=== PATIENT | female | born 1980 | race Caucasian/White ===

== ENCOUNTER 2022-03-27 13:13 | Emergency (ER) | payer OTHER, SELFPAY ==
[2022-03-27 13:17] VITALS: BP 140/95; PULSE 118; RESP 15; TEMP 36.3; O2SAT 100; BMI 32.5
[2022-03-27 13:52] LABS: Add Manual Diff / Slide Review NO; Basophils Absolute Auto 0 /uL (0-100); Basophils Percent Auto 0.6 % (0-2); Eosinophils Absolute Auto 100 /uL (0-450); Eosinophils Percent Auto 1.2 % (2-4); Hematocrit 30.9 % (36-46); Hemoglobin 10.3 g/dL (12.0-16.0); Lymphocytes Absolute Auto 1200 /uL (1100-4500); Mean Corpuscular HGB Conc 33.3 % (30-36); Mean Corpuscular Hemoglobin 27.2 PG (26-34); Mean Corpuscular Volume 81.6 fL (80-100); Monocytes Absolute Auto 500 /uL (0-900); Neutrophils Absolute Auto 6100 /uL (1500-7000); Neutrophils Percent Auto 77.2 % (50-75); Platelet Count 370 X10^3/uL (150-400); Red Blood Cell Count 3.79 X10^6/uL (4.0-5.2); Red Cell Distribution Width 13.8 % (11.6-14.8); White Blood Cell Count 7.9 X10^3/uL (4.5-11.0)
[2022-03-27 14:13] LABS: BUN Creatinine Ratio 13.6 (6-22); Blood Urea Nitrogen 8 mg/dL (7-17); Calcium 8.7 mg/dL (8.4-10.2); Carbon Dioxide 23 mmol/L (22-32); Chloride 106 mmol/L (98-107); Estimated Glomerular Filt Rate > 60 mL/min (>60); Glucose 106 mg/dL (70-100); HEMOLYSIS < 15 (0-50); Potassium 3.6 mmol/L (3.4-5.1); Sodium 139 mmol/L (137-145)
[2022-03-27 14:58] LABS: Bacteria Urine None Seen; Culture Indicated Urine Cult Not Indicated; RBC Urine 30-100/HPF (0-5/HPF); Squamous Epithelial Cell Urine 1-5 /HPF (0-5/HPF); WBC Urine 0-1/HPF (0-5/HPF)
--- NOTE | 2022-03-27 15:11 | DI.US.S_ITS ---
PROCEDURE: US PELVIC COMPLETE INDICATIONS: HEAVY BLEEDING. HISTORY OF FIBROIDS. TECHNIQUE: Real-time scanning was performed of the pelvic organs, with image documentation. Additional endovaginal scanning was necessary due to incomplete visualization of the adnexal and endometrial structures by transabdominal scanning. COMPARISON: [facility], US, US PELVIC COMPLETE, 08/02/2021, 14:28. FINDINGS: Uterus: Uterus is anteverted and normal in size at 11.0 x 8.7 x 7.9 cm. The myometrium is heterogenous with multiple fibroids. The endometrium measures 33 mm combined thickness. Multiple large fibroids are identified, including a right anterior lower uterine segment intramural fibroid measuring 3.6 x 4.6 x 4.2 cm, a right posterior mid intramural fibroid measuring 3.4 x 3.5 x 5.0 cm, a mid medial submucosal fibroid measuring 3.1 x 3.1 x 4.3 cm, a fundal subserosal fibroid measuring 4.7 x 6.3 x 4.7 cm, and a left mid subserosal fibroid measuring 3.7 x 3.4 x 3.3 cm. Ovaries: The right ovary is not well visualized. The left ovary measures 4.3 x 2.4 x 2.0 cm and demonstrates arterial and venous flow. Other: No pathologic free abdominal or pelvic fluid. IMPRESSION: 1. Multiple large uterine fibroids as detailed above. 2. Endometrial thickening. We strive to produce accurate, complete, and clear reports of imaging services. To assist us in improving patient care, this report was composed using standard report templates and voice recognition software. Therefore, it may contain abnormal punctuation, insertions and/or omissions. Occasional wrong-word or sound-alike substitutions may occur. Though we review the report and make efforts to correct it, we do recommend that the report be read carefully in proper context to recognize any text inaccuracies. Dictated by: Himanshu Wilhelm M.D. on 03/27/2022 at 17:26 Approved by: Himanshu Wilhelm M.D. on 03/27/2022 at 17:30
[2022-03-27 17:27] VITALS: BP 135/90; BP 136/100; PULSE 127; PULSE 142
--- NOTE | 2022-03-27 17:29 | PC.NURSE ---
pt reports 1 year of increasingly heavy periods with clots at times, has known uterine fibroids. was supposed to have surgery yesterday to help but surgery was canceled to due bleeding being too heavy. pt has been on progesterone po x 3 months with recent dose increases to try to control reduce bleeding for surgery. pt also now report pain accomonies. pt has heavy bleeding chaning pad/tampon high absorbancy about every 30 mins with clots at times and many periods with constant gushing of vaginal blood. denies syncope but reports generally feeling lightheaded and spacy yesterday also took extra dose of iron to try and help. pt and her partner are wanting to start a family and so are seeing fertility specialist/clinic lately for management of heavy vaginal bleeding.
[2022-03-27 17:33] VITALS: BP 135/90; PULSE 127; RESP 20; O2SAT 100
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
[2022-03-27] MEDS: SODIUM CHLORIDE 0.9% 1,000 ML 1000 ML IV (18:52)
[2022-03-27] MEDS: KETOROLAC 30 MG/ML VIAL 15 MG IM (18:52)
[2022-03-27] MEDS: TRANEXAMIC ACID 1,000 MG in SODIUM CHLORIDE 0.9% 100 ML 200 MG IV (18:52)
[2022-03-27 18:57] LABS: Hematocrit 28.5 % (36-46); Hemoglobin 9.8 g/dL (12.0-16.0)
[2022-03-27 19:00] VITALS: BP 144/78; PULSE 118; RESP 22; O2SAT 100
[2022-03-27 19:18] VITALS: BP 157/84; PULSE 107; RESP 18; O2SAT 100
[2022-03-27] MEDS: HYDROCODONE/ACET 5/325 TABLET 1 TAB PO (19:30)
[2022-03-27] MEDS: ONDANSETRON 4 MG ODT SL (19:30)
[2022-03-27] MEDS: MEDROXYPROGESTERONE ACETATE 10 MG TABLET 20 MG PO (19:30)
--- NOTE | 2022-03-29 14:15 | PC.NURSE ---
Pt called w/ questions about decreasing the progesterone to q4 hr etc. Pt states bleeding has slowed and she is only changing pad 1 x day. Discussed and plan will be to go by how frequently she has to change her pads. I encouraged her to return if any worsening, concerns. She has follow up scheduled.
== END 2022-03-27 19:44 | disposition home or self-care (01) ==
PROVIDERS: Emergency Medicine; Emergency Provider Nurse Practitioner Critical Care Medicine; PCP Nurse Practitioner Family
DX: N92.1 Excessive and frequent menstruation with irregular cycle (principal); D25.1 Intramural leiomyoma of uterus
CPT/HCPCS: 36415; 76856; 80048; 81003; 81015; 81025; 85014; 85018; 85025; 86850; 86900; 86901; 96372; 99284; J1885